=== PATIENT | male | born 1935 | race Caucasian/White ===

== ENCOUNTER 2022-05-15 06:33 | Day surgery (SDC) | payer MEDICARE, OTHER ==
[~2022-05-15] VITALS: Ht 177.8 cm; Wt 74.3 kg
[2022-05-15] VITALS (8 sets, daily range): BP systolic 92–149; BP diastolic 58–90
[2022-05-15] MEDS ORDERED: normal saline 1000ml 1,000 ML IV SCH (07:00)
[2022-05-15] MEDS ORDERED: cefazolin/dext.iso 2gm/100ml 100 ML IV ONE (07:00)
[2022-05-15 07:19] LABS: BASOPHILS # (AUTO) 0.1 X10'3 (0-0.2); BASOPHILS % (AUTO) 0.8 % (0-1); EOSINOPHILS # (AUTO) 0.2 X10'3 (0-0.9); EOSINOPHILS % (AUTO) 2.5 % (0-6); HEMATOCRIT 50.7 % (42.0-52.0); HEMOGLOBIN 17.3 g/dl (14.0-17.9); LYMPHOCYTES # (AUTO) 2.3 X10'3 (1.1-4.8); LYMPHOCYTES % (AUTO) 27.4 % (21-51); MEAN CORPUSCULAR HEMOGLOBIN 31.5 PG (27.0-31.0); MEAN CORPUSCULAR VOLUME 92.6 FL (78-98); MEAN PLATELET VOLUME 8.5 FL (7.4-10.4); MONOCYTES # (AUTO) 0.7 X10'3 (0-0.9); MONOCYTES % (AUTO) 8.3 % (2-12); NEUTROPHILS # (AUTO) 5.2 X10'3 (1.8-7.7); PLATELET COUNT 195 X10'3 (140-440); RED BLOOD COUNT 5.47 X10'6 (4.70-6.10); RED CELL DISTRIBUTION WIDTH 13.6 % (11.5-14.5); WHITE BLOOD COUNT 8.6 X10'3 (4.5-11.0)
[2022-05-15] MEDS ORDERED: METO25TA6 PO (07:29)
[2022-05-15] MEDS ORDERED: ASPI-845 PO (07:29)
[2022-05-15] MEDS ORDERED: MEMA7CAP2 PO (07:29)
[2022-05-15] MEDS ORDERED: Super B Complex PO (07:31)
[2022-05-15] MEDS ORDERED: CHOL100046 PO (07:31)
[2022-05-15 07:35] LABS: ALBUMIN 3.7 G/DL (3.4-5.0); ANION GAP 7 (8-16); BLOOD UREA NITROGEN 27 MG/DL (7-18); BUN/CREATININE RATIO 15.3 (5.4-32.0); CALCIUM 9.3 MG/DL (8.5-10.1); CHLORIDE 108 MMOL/L (99-107); CREATININE 1.76 MG/DL (0.60-1.10); GLUCOSE 111 MG/DL (70-104); MAGNESIUM 2.4 MG/DL (1.5-2.4); POTASSIUM 4.5 MMOL/L (3.5-5.1); SODIUM 141 MMOL/L (135-145); TOTAL CARBON DIOXIDE 26.3 MMOL/L (24-32); eGFR 37 ML/MIN
[2022-05-15] MEDS ORDERED: SIMV-42 PO (07:36)
[2022-05-15] MEDS ORDERED: LIDOCAINE 2% w/EPI 1:100:000 30mL injection MDV**cath lab 1 only ONE (08:28)
[2022-05-15] MEDS ORDERED: midazolam 1 mg/ML 2ml injection ONE ×2 (08:28→10:02)
[2022-05-15] MEDS ORDERED: fentaNYL/PF 50MCG/1 ML 2ML syringe ONE (08:28)
[2022-05-15] MEDS ORDERED: vancomycin 1,000mg inj ONE (08:28)
[2022-05-15] MEDS ORDERED: HYDROcodone/acetaminophen 10/325mg tab PO PRN (11:30)
[2022-05-15] MEDS ORDERED: HYDROcodone/acetaminophen 5mg/325mg tablet PO PRN (11:30)
[2022-05-15] MEDS ORDERED: sod chloride 0.9% 10ml flush syringe IV SCH (16:00)
== END 2022-05-15 12:35 | disposition home or self-care (01) ==
LOC: SSTAY O 06:33
PROVIDERS: ATTEND Internal Medicine Cardiovascular Disease
DX: Z45.010 Encounter for checking and testing of cardiac pacemaker pulse generator [battery] (principal); I25.10 Atherosclerotic heart disease of native coronary artery without angina pectoris; I10 Essential (primary) hypertension; I44.2 Atrioventricular block, complete; Z95.1 Presence of aortocoronary bypass graft; Z79.01 Long term (current) use of anticoagulants; Z79.899 Other long term (current) drug therapy
CPT/HCPCS: 33228; 36415; 80048; 83735; 85025; 85610; 93005; 93308; 99152; 99153; J2250; J3010; J3370; J3490; J7030; A4620; A6258

== ENCOUNTER 2023-05-17 09:45 | Day surgery (SDC) | payer MEDICARE, OTHER ==
[2023-05-17] VITALS (20 sets, daily range): BP systolic 109–182; BP diastolic 64–146
[~2023-05-17] VITALS: Ht 180.3 cm; Wt 71.7 kg
[~2023-05-17 09:45] MED LIST: ASPI-845 PO; MEMA7CAP2 PO; METO25TA6 PO; MINO50CA5 PO; SIMV-42 PO; famotidine 20mg tablet PO ONE
[2023-05-17] MEDS: ringers solution, lacted 1,000 ML IV SCH ×2 (10:44→12:49)
[2023-05-17] MEDS ORDERED: vancomycin/NS 1 GM ADD-VANTAGE 250 ML IV ONE (11:25)
[2023-05-17] MEDS ORDERED: ceFAZolin/D5W- 1GM premix 50 ML IV ONE (11:25)
[2023-05-17 11:29] LABS: APTT 27 SECONDS (22-32)
[2023-05-17 11:35] LABS: BASOPHILS # (AUTO) 0.1 X10'3 (0-0.2); BASOPHILS % (AUTO) 0.7 % (0-1); EOSINOPHILS # (AUTO) 0.2 X10'3 (0-0.9); EOSINOPHILS % (AUTO) 2.1 % (0-6); LYMPHOCYTES # (AUTO) 1.9 X10'3 (1.1-4.8); LYMPHOCYTES % (AUTO) 24.2 % (21-51); MEAN CORPUSCULAR HEMOGLOBIN 30.2 PG (27.0-31.0); MEAN CORPUSCULAR VOLUME 91.5 FL (78-98); MEAN PLATELET VOLUME 9.5 FL (7.4-10.4); MONOCYTES # (AUTO) 0.8 X10'3 (0-0.9); MONOCYTES % (AUTO) 10.3 % (2-12); NEUTROPHILS # (AUTO) 4.8 X10'3 (1.8-7.7); NEUTROPHILS % (AUTO) 62.7 % (42-75); PRE OP HEMATOCRIT 50.3 % (42.0-52.0); PRE OP HEMOGLOBIN 16.6 g/dL (14.0-17.9); PRE OP PLATELET COUNT 144 X10'3 (140-440); RED BLOOD COUNT 5.49 X10'6 (4.70-6.10); RED CELL DISTRIBUTION WIDTH 15.4 % (11.5-14.5)
[2023-05-17] MEDS ORDERED: cefazolin 2gm/D5W 100mL 100 ML IV ONE (11:35)
[2023-05-17 11:36] LABS: ALANINE AMINOTRANSFERASE 23 U/L (12-78); ALBUMIN 3.5 G/DL (3.4-5.0); ALBUMIN/GLOBULIN RATIO 1.3 (1.1-1.5); ALKALINE PHOSPHATASE 79 IU/L (46-116); ANION GAP 13 (8-16); ASPARTATE AMINO TRANSFERASE 26 U/L (10-37); BILIRUBIN,TOTAL 1.8 MG/DL (0.1-1.0); BLOOD UREA NITROGEN 23 MG/DL (7-18); BUN/CREATININE RATIO 14.2 (10.0-20.0); CALCIUM 9.2 MG/DL (8.5-10.1); CHLORIDE 106 MMOL/L (99-107); CREATININE 1.62 MG/DL (0.60-1.10); GLUCOSE 95 MG/DL (70-104); POTASSIUM 4.1 MMOL/L (3.5-5.1); SODIUM 142 MMOL/L (135-145); TOTAL CARBON DIOXIDE 22.7 MMOL/L (24-32); TOTAL PROTEIN 6.2 G/DL (6.4-8.2); eGFR 40 ML/MIN
[2023-05-17] MEDS ORDERED: heparin 1,000 UNITS/NS 500ml 500 ML ONE (13:50)
[2023-05-17] MEDS ORDERED: vancomycin 1,000mg inj ONE (13:56)
[2023-05-17] MEDS ORDERED: sevoflurane 250ml liquid IH ONE (14:06)
[2023-05-17] MEDS ORDERED: fentaNYL/PF 50MCG/1 ML 2ML syringe ONE (14:12)
[2023-05-17] MEDS ORDERED: midazolam 1 mg/ML 2ml injection ONE (14:12)
[2023-05-17] MEDS ORDERED: LIDOCAINE 2%/EPI 1:100,000 inj. Multi-dose 20 ML VIAL ONE (14:41)
[2023-05-17] MEDS ORDERED: ondansetron/PF 4mg/2ml inj ONE (14:44)
[2023-05-17] MEDS ORDERED: ePHEDrine 50MG/ML INJ. ONE (14:44)
[2023-05-17] MEDS ORDERED: 0.9 % SODIUM CHLORIDE 10 ML VIAL ONE (14:44)
[2023-05-17] MEDS ORDERED: rocuronium 10mg/ml inj IV ONE (14:44)
[2023-05-17] MEDS ORDERED: propofol inj 20 ML IV ONE (14:44)
[2023-05-17] MEDS ORDERED: LIDOcaine 2% (20mg/ml) 5ml vial ONE (14:44)
[2023-05-17] MEDS ORDERED: dexamethasone sod phosphate 4mg/ml inj. ONE (14:44)
[2023-05-17] MEDS ORDERED: proCHLORperazine 10 MG/2 ml inj IV PRN (16:35)
[2023-05-17] MEDS ORDERED: meperidine/PF 25mg/ml syringe IV PRN ×3 (16:35)
[2023-05-17] MEDS ORDERED: ringers solution, lacted 1,000 ML IV SCH (16:35)
[2023-05-17] MEDS ORDERED: ondansetron/PF 4mg/2ml inj IV PRN (16:35)
[2023-05-17] MEDS ORDERED: acetaminophen 1,000mg/100ml IV 100 ML IV PRN (16:35)
[2023-05-17] MEDS ORDERED: morphine 2 MG/ML inj. syringe IV PRN (16:35)
[2023-05-17] MEDS ORDERED: morphine 4 MG/ML inj SYRINge IV PRN (16:35)
[2023-05-17] MEDS ORDERED: labetalol 20mg/4ml (5mg/ml) syringe IV PRN (16:35)
[2023-05-17] MEDS ORDERED: hydrALAZINE 20mg/ml inj. IV PRN (16:35)
--- NOTE | 2023-05-17 16:45 | NUR ---
Received from OR via [facility], accompanied by Anesthesiologist DR ALVARENGA and report given by Anesthesiologist. PT IS GROGGY BUT RESPONDS TO VERBAL STIMULI AND FOLLOWS COMMANDS. PT PLACED ON BESIDE MONITOR, VSS. PT IS RECEIVING 8L 02 TO MASK AND TOLERATING WELL WITH O2 SAT >95%. WILL TITRATE DOWN AT PT TOLERATES. PT HAS 18G PIV TO LT ARM WITH NS INFUSING ORDERED. PT HAS DRSG TO RT UPPER CHEST THAT HAS SMALL AMOUNT OF DRAINAGE NOTED AND HAS BEEN MARKED, PER [employer] PARAPROFESSIONAL RN SOME DRAINAGE IS TO BE EXPECTED. PT HAS GAUZE WITH TEGADERM IN PLACE TO RT GROIN THAT IS CDI. PT DENIES PAIN AT THIS TIME. WILL CONTINUE TO ASSESS
--- NOTE | 2023-05-17 17:17 | NUR ---
PACE MAKER REP IS AT BEDSIDE INTERROGATING PACER D/T PT'S HR SLOWLY TRENDING UP FROM MID 80'S-110'S. VSS, NO S/S DISTRESS NOTED AT THIS TIME. WILL CONTINUE TO ASSESS
--- NOTE | 2023-05-17 18:49 | NUR ---
PATIENT HAS MET ALL CRITERIA FOR TRANSFER TO THE SHORT STAY FLOOR. VSS. DRESSINGS INTACT WITH SMALL AMOUNT OF DRAINAGE THAT HAS BEEN MARKED AND REPORTED. BED LOW, CALL LIGHT PRESENT AND 2 RAILS UP. JOHN RN PRESENT TO ACCEPT CARE OF PATIENT AND REPORT HAS BEEN CALLED. ALL QUESTIONS ANSWERED TO ACCEPTING RN.
--- NOTE | 2023-05-17 20:07 | NUR ---
Echo and EKG done per Dr Lilly for tachycardia. PPM reinterrogated by rep
== END 2023-05-17 20:45 | disposition home or self-care (01) ==
LOC: PAS 09:45
PROVIDERS: ATTEND Internal Medicine Cardiovascular Disease
DX: T82.191A Other mechanical complication of cardiac pulse generator (battery), initial encounter (principal); I25.10 Atherosclerotic heart disease of native coronary artery without angina pectoris; I44.2 Atrioventricular block, complete; I10 Essential (primary) hypertension; E78.00 Pure hypercholesterolemia, unspecified; Z95.1 Presence of aortocoronary bypass graft; Z79.899 Other long term (current) drug therapy; Z79.82 Long term (current) use of aspirin; Z96.653 Presence of artificial knee joint, bilateral; Z79.01 Long term (current) use of anticoagulants; Y83.8 Other surgical procedures as the cause of abnormal reaction of the patient, or of later complication, without mention of misadventure at the time of the procedure; Y92.89 Other specified places as the place of occurrence of the external cause
CPT/HCPCS: 33235; 36415; 71045; 80053; 82948; 85025; 85610; 85730; 86885; 86900; 86901; 86920; 93308; A6266; C1769; C1773; J0131; J0690; J1100; J1644; J2250; J2405; J2704; J3010; J3370; J3490; J7120; Z7512; 99152; 99153; A4618; A6258; A6402; A6449; A6550; C1760

== ENCOUNTER 2024-08-06 11:25 | Emergency (ER) | payer MEDICARE, OTHER ==
[~2024-08-06] VITALS: Ht 177.8 cm; Wt 73.5 kg
[~2024-08-06 11:25] MED LIST changes: -famotidine 20mg tablet PO ONE
[2024-08-06] MEDS: TETanus/Pertussis (Acell)/Diphther VAC/PF (Tdap-Adult) 0.5ml syringe IMVAC ONE (12:15)
[2024-08-06 12:18] LABS: BASOPHILS % (AUTO) 0.5 % (0-1); EOSINOPHILS # (AUTO) 0.1 X10'3 (0-0.9); EOSINOPHILS % (AUTO) 1.4 % (0-6); HEMATOCRIT 39.9 % (42.0-52.0); HEMOGLOBIN 12.8 g/dl (14.0-17.9); LYMPHOCYTES # (AUTO) 1.6 X10'3 (1.1-4.8); LYMPHOCYTES % (AUTO) 20.9 % (21-51); MEAN CORPUSCULAR HEMOGLOBIN 26.1 PG (27.0-31.0); MEAN CORPUSCULAR HGB CONC 32.1 g/dL (33.0-36.5); MEAN CORPUSCULAR VOLUME 81.2 FL (78-98); MEAN PLATELET VOLUME 8.9 FL (7.4-10.4); MONOCYTES # (AUTO) 0.6 X10'3 (0-0.9); MONOCYTES % (AUTO) 8.5 % (2-12); NEUTROPHILS # (AUTO) 5.2 X10'3 (1.8-7.7); NEUTROPHILS % (AUTO) 68.7 % (42-75); PLATELET COUNT 181 X10'3 (140-440); RED BLOOD COUNT 4.92 X10'6 (4.70-6.10); RED CELL DISTRIBUTION WIDTH 14.9 % (11.5-14.5); WHITE BLOOD COUNT 7.5 X10'3 (4.5-11.0)
[2024-08-06 12:34] LABS: ALANINE AMINOTRANSFERASE 17 U/L (12-78); ALBUMIN 3.3 G/DL (3.4-5.0); ALBUMIN/GLOBULIN RATIO 1.2 (1.1-1.5); ALKALINE PHOSPHATASE 69 IU/L (46-116); ANION GAP 8 (8-16); ASPARTATE AMINO TRANSFERASE 22 U/L (10-37); BLOOD UREA NITROGEN 20 MG/DL (7-18); BUN/CREATININE RATIO 10.7 (10.0-20.0); CHLORIDE 108 MMOL/L (99-107); CREATININE 1.87 MG/DL (0.60-1.10); GLUCOSE 129 MG/DL (70-104); POTASSIUM 4.4 MMOL/L (3.5-5.1); SODIUM 141 MMOL/L (135-145); TOTAL CARBON DIOXIDE 25.3 MMOL/L (24-32); TOTAL PROTEIN 6.1 G/DL (6.4-8.2); eCRCL 28 ML/MIN; eGFR 34 ML/MIN
[2024-08-06 12:43] LABS: BILIRUBIN,DIRECT 0.3 MG/DL (0-0.3); MAGNESIUM 2.3 MG/DL (1.5-2.4); PRO BRAIN NATRIURETIC PEPTIDE 626 PG/ML (0-450)
[2024-08-06 13:12] LABS: BILIRUBIN,URINE NEGATIVE (Neg); CLARITY,URINE CLEAR (Clear); GLUCOSE, URINE NEGATIVE (Neg); KETONES,URINE NEGATIVE (Neg); LEUKOCYTE ESTERASE ,URINE NEGATIVE (Neg); NITRITES, URINE NEGATIVE (Neg); OCCULT BLOOD,URINE NEGATIVE (Neg); PROTEIN,URINE NEGATIVE (Neg); UROBILINOGEN,URINE 0.2 E.U/dL (0.2-1.0)
[2024-08-06 13:13] LABS: COLOR,URINE STRAW (Yellow); UA COLLECTION TYPE URINAL
[2024-08-06] MEDS: normal saline 1000ml 1,000 ML IV ONE (13:44)
[2024-08-06] MEDS: acetaminophen 325mg tablet PO ONE (15:19)
[2024-08-06] MEDS: meclizine 12.5mg tablet PO ONE (15:40)
[2024-08-06 15:52] VITALS: BP 169/98; PULSE 84; RESP 16; TEMP 97.8; O2SAT 98
== END 2024-08-06 15:56 | disposition home or self-care (01) ==
LOC: ER 11:25
DX: E86.0 Dehydration (principal); R42 Dizziness and giddiness; R53.1 Weakness; R51.9 Headache, unspecified; Z79.82 Long term (current) use of aspirin; Z79.899 Other long term (current) drug therapy
CPT/HCPCS: 36415; 71045; 80048; 80076; 81003; 83735; 83880; 84484; 85025; 90715; 93005; 96360; 99285; J7030; J8597